=== PATIENT | female | born 1990 | race Caucasian/White ===

== ENCOUNTER 2017-02-02 10:34 | Observation (INO) | payer MEDICAID ==
--- NOTE | 2017-02-01 22:07 | PDGENHP ---
History and Physical History and Physical: Assessment and Plan: 1. Endometriosis of pelvic peritoneum Susie appears to have persistent endometriosis of the posterior cul-de-sac, uterosacral ligaments, ovarian fossas, as well as adhesions secondary to endometriosis of the left ovary to the posterior uterus. The left ovarian cysts s do not appear to be endometriomas. He has not done well with conservative treatment. We again reviewed all conservative and surgical options. At the end of our discussion she wishes to proceed with robotic excision of all superficial and deep lesions of endometriosis. She would like to become again in the future. I will perform her preoperative counseling over the phone. 2. Dysmenorrhea 3. Dyschezia Subjective: Patient ID: Monica Weinstein is a 26 y.o. female who presents to [facility] for endometriosis. FLORI Richards is a 26-year-old para 1 woman using the NuvaRing for contraception. She has a long history of pelvic pain and 3 laparoscopies for endometriosis. The first was in 2009. The last 2 were in [address] Parikh in [place]. I have seen a copy of his operative notes which document fulguration of some endometriosis. She did receive relief for about 6 months with her first surgery. The second surgery this October has not provided any relief. Before her second surgery she was doubled over in pain which was mostly in the left lower quadrant. Dr. Parikh thought she may have 2 ovarian cysts intraoperatively. A Светлана was placed postoperatively. She had trouble pain. This was later removed. She then was switched to the Ortho Evra patch and eventually to the NuvaRing. She has been using the NuvaRing in a continuous fashion. She describes pain on a daily basis. It is focused in the left lower quadrant. There is some slight radiation to her anterior thighs. She describes the pain as a sharp stabbing pain and occasionally dull and cramping. She does have deep dyschezia and occasional dyspareunia. Fortunately she has no chest pain shoulder pain or shortness of breath suggesting diaphragmatic endometriosis. She lives in [place]. She has been with her current partner for 2 years however they do not live together. She does not smoke. 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 "takes 3 tablets for outbreaks etonogestrel-eth estradiol (NUVARING) 0.12-0.015 mg/[address] 1 each vaginally See Admin Instructions. Insert vaginally and leave in place for 3 consecutive weeks, then remove for 1 week. ibuprofen (ADVIL,MOTRIN) 800 mg tablet Take 800 mg by mouth as needed for Pain for Pain. Reported on 07/08/2016 benzocaine (ORABASE-B) 20 % mucous membrane gel Apply topically 2 times daily for Mouth Irritation. (Patient not taking: Reported on 01/07/2017) benzocaine (ORABASE-B) 20 % mucous membrane gel Apply topically 2 times daily for Mouth Irritation. (Patient not taking: Reported on 01/07/2017) fluCONazole (DIFLUCAN) 200 mg tablet Take 1 tablet by mouth daily for Vulvovaginal Candidiasis. (Patient not taking: Reported on 01/07/2017) HYDROCODONE/ACETAMINOPHEN (NORCO PO) sodium phosphates (FLEETS) 19-7 gram/118 mL Enem enema Take 133 mLs as instructed daily as needed for Constipation for constipation. (Patient not taking: Reported on 01/07/2017) No current facility-administered medications for this visit. ALLERGIES: Succinylcholine; Clindamycin; Lexapro [escitalopram oxalate]; Wellbutrin [bupropion hcl]; and Zoloft [sertraline] I have reviewed, verified and agree with the past medical, surgical, , family, social and ROS history as documented by the RN today. Review of Systems Objective: Vital Signs: Visit Vitals BP 104/66 Pulse 73 Temp 36.6 C (97.9 F) (Temporal Artery) Resp 14 Ht 1.651 m (5' 5") Wt 52.8 kg (116 lb 6.4 oz) SpO2 99% BMI 19.37 kg/m2 Physical Exam Gen: This is an alert, well developed woman in no distress. Neuro: She moves all extremities. Psych: She is appropriate, oriented, with normal affect. Neck: No thyroid enlargement, adenopathy, or tenderness. Lungs: Clear to ascultation, no wheezes or rales. Heart: Regular rate and rhythm without obvious murmurs. Abdomen: Soft, non-tender, without guarding, rebound, or masses. Extremities: No edema or cyanosis. Pelvic: Normal external genitalia. Non-gaping introitus, vagina without discharge, adequately estrogenized, no significant prolapse. Cervix without lesions or discharge. Uterus normal sized. Adnexa without enlargement. The uterus is fixed. She is exquisitely tender on the posterior cervix and in the posterior cul-de-sac, especially along the left uterosacral ligament. No significant nodularity is palpable. No rectovaginal nodules are palpable. DATA: Pelvic ultrasound Findings: The uterus is mid position and measures 9.2 x 4.7 x 7.0 cm. The endometrium measures 2 mm. No obvious uterine abnormalities are seen. The uterus slides over the rectum. The right ovary measures 3.1 x 1.5 cm. The left ovary measures 2.8 x 1.8 cm. It contains 2 small complex cystic structures the more posterior measures 1.1 x 1.0 cm. The anterior measures 1.0 x 0.7 cm. The left adnexa appears to be adherent to the posterior uterus. Impression: Left ovary adherent to the posterior uterus. Otherwise relatively unremarkable pelvic ultrasound. TIME/COMMUNICATION: I personally spent a total of 50 minutes. Of that 40 minutes was counseling/ coordination of patient's care. See my note above for details. Young Flores MD Board Certified Female Pelvic Medicine and Reconstructive Surgery Director of Minimally Invasive Gynecologic Surgery, [facility] ([place], [place]) [facility] in Minimally Invasive Gynecologic Surgery Designee
[2017-02-02] MEDS ORDERED: ceFAZolin 2 GM/DEXTROSE 100 ML IV ONE (11:03)
[2017-02-02] MEDS ORDERED: PHENAZOPYRIDINE HCL 100 MG TAB PO ONE (11:03)
[2017-02-02] MEDS ORDERED: LIDOCAINE 1% 2 ML INJ ID PRN (11:04)
[2017-02-02] MEDS ORDERED: LR 1,000 ML IV ONE (11:04)
[2017-02-02] MEDS ORDERED: PHENAZOPYRIDINE HCL 200 MG TAB ONE (11:27)
--- NOTE | 2017-02-02 11:44 | PDANEPAE ---
ANE History of Present Illness 26 yo female with pelvic pain secondary to endometriosis. No pain meds in a while. ANE Past Medical History Past Medical History: No URI/fever x 2 weeks. - Cardiovascular History Hx Hypertension: No Hx Arrhythmias: No Hx Chest Pain: No Hx Coronary Artery / Peripheral Vascular Disease: No Hx CHF / Valvular Disease: No Hx Palpitations: No - Pulmonary History Hx COPD: No Hx Asthma/Reactive Airway Disease: No Hx Recent Upper Respiratory Infection: No Hx Oxygen in Use at Home: No Hx Sleep Apnea: No Sleep Apnea Screening Result - Last Documented: Negative - Neurologic History Hx Cerebrovascular Accident: No Hx Seizures: No Hx Dementia: No Neurologic History Comment: MIGRAINES - Endocrine History Hx Diabetes: No - Renal History Hx Renal Disorders: No - Liver History Hx Hepatic Disorders: No - Neurological & Psychiatric Hx Hx Neurological and Psychiatric Disorders: Yes Neurological / Psychiatric History Comment: ANXIETY & DEPRESSION - Cancer History Hx Cancer: No - Congenital Disorder History Hx Congenital Disorders: No - GI History Hx Gastrointestinal Disorders: No - Other Health History Other Health History: NEG - Chronic Pain History Chronic Pain: Yes (ENDOMETRIOSIS PAIN) - Surgical History Prior Surgeries: LAPAROSCOPY X3. BUNIONECTOMY. TONSILLECTOM. CYST REM WRIST & BACK ANE Review of Systems Review of Systems: - Exercise capacity METS (RN): 4 METS - Systems Constitutional: Reports: no symptoms Cardiac: Reports: no symptoms Respiratory: Reports: shortness of breath (with 2 FOS, pt says she has to pause. No presyncope.) Gastrointestinal: Reports: no symptoms ANE Patient History - Allergies Allergies/Adverse Reactions: succinylcholine Allergy (Severe, Verified 01/27/17 10:38) ACUTE RESPIRATORY FAILURE clindamycin Allergy (Verified 01/27/17 10:44) - Home Medications Home medications: home medication list seen and reviewed Home Medications: Acyclovir 01/27/17 [Last Taken Unknown] Butalbital Compound Tablet 01/27/17 [Last Taken Unknown] Percocet 5-325 mg Tablet 01/27/17 [Last Taken Unknown] - NPO status NPO Status: no food or drink >8 hours NPO Since - Liquids (Date): 02/01/17 NPO Since - Liquids (Time): 23:30 NPO Since - Solids (Date): 02/01/17 NPO Since - Solids (Time): 19:00 - Anes Hx Hx Anesthesia Complications (with details): pseudocholinesterase deficiency noted with succinylcholine dosing in the past - Smoking Hx Smoking Status: Former smoker - Alcohol Use Alcohol Use: Occasionally - Family Anes Hx Family Anes Hx: neg - N/A Family Hx Anesthesia Complications: NEG ANE Labs/Vital Signs - Vital Signs Blood Pressure: 136/82 Heart Rate: 82 Respiratory Rate: 18 O2 Sat (%): 98 Height: 165.1 cm Weight: 52.617 kg ANE Physical Exam - Airway Neck exam: decreased ROM (slightly decreased extension - pt reports muscular stiffness) Mallampati Score: Class 2 Mouth exam: normal dental/mouth exam - Pulmonary Pulmonary: clear to auscultation - Cardiovascular Cardiovascular: regular rate and rhythym, no murmur, rub, or gallop - ASA Status ASA Status: II ANE Anesthesia Plan Anesthesia Plan: general endotracheal anesthesia
--- NOTE | 2017-02-02 12:18 | PDHPUP ---
History & Physical Update H&P update statement: This history and physical update is based on an assessment of the patient which was completed after admission or registration (within 24 hours), but prior to the surgery/procedure. H&P update: H&P reviewed & patient examined, no change in patient's condition since H&P completed
[2017-02-02] MEDS ORDERED: MIDAZOLAM 2 MG/2 ML VIAL IVP ONE (12:30)
[2017-02-02] MEDS ORDERED: PROPOFOL/EMULSION 500 MG/50 ML BOTTLE IV ONE ×2 (12:33→12:42)
[2017-02-02] MEDS ORDERED: BUPIVACAINE/EPI 0.5% 30 ML SDV ONE (12:33)
[2017-02-02] MEDS ORDERED: fentaNYL 100 MCG/2 ML INJ ONE ×5 (12:33→15:18)
[2017-02-02] MEDS ORDERED: MIDAZOLAM 2 MG/2 ML VIAL ONE (12:36)
[2017-02-02] MEDS ORDERED: ROCURONIUM 50 MG/5 ML VIAL ONE ×3 (12:36→13:14)
[2017-02-02] MEDS ORDERED: ONDANSETRON 4 MG/2 ML VIAL ONE (12:36)
[2017-02-02] MEDS ORDERED: DEXAMETHASONE 4 MG/ML VIAL ONE (12:36)
[2017-02-02] MEDS ORDERED: LIDOCAINE 2% 5 ML SDV ONE (13:13)
[2017-02-02] MEDS ORDERED: LR 500 ML IV PRN (14:31)
[2017-02-02] MEDS ORDERED: PROMETHAZINE HCL 25 MG/ML INJ IVP PRN ×2 (14:31→18:35)
[2017-02-02] MEDS ORDERED: ALBUTEROL 3 ML DEYVIAL IH PRN (14:31)
[2017-02-02] MEDS ORDERED: ACETAMINOPHEN 500 MG TAB PO PRN (14:31)
[2017-02-02] MEDS ORDERED: OXYCODONE/APAP 5/325 TAB PO PRN (14:31)
[2017-02-02] MEDS ORDERED: HYDROCODONE/APAP 5/325 TAB PO PRN (14:31)
[2017-02-02] MEDS ORDERED: NALOXONE HCL 0.4 MG/ML INJ IVP PRN (14:31)
[2017-02-02] MEDS ORDERED: GLYCOPYRROLATE 0.2 MG/1 ML VIAL ONE (14:33)
[2017-02-02] MEDS ORDERED: KETOROLAC 30 MG/1 ML SDV ONE (14:33)
[2017-02-02] MEDS ORDERED: NEOSTIGMINE METHYLSULFATE 3 MG/3 ML SYR ONE (14:33)
--- NOTE | 2017-02-02 15:05 | POSTOPPROG ---
Post Op Note Date of Operation: 02/02/17 Surgeon: Young Flores Heavy Duty Diesel Mechanic: Lexi Mantilla Anesthesiologist: Alessandra Eaton Anesthesia: GET(General Endotracheal) Pre-op Diagnosis: Endometriosis Post-op Diagnosis: Same Procedure: Robotic excision of endo, bilat ureterolysis and ovarian pexy, excise recta Findings: Endo Inf/Abcess present in the surg proc area at time of surgery?: No EBL: Minimal Complications: None
[2017-02-02] MEDS: fentaNYL 100 MCG/2 ML INJ IVP PRN ×3 (15:10→17:56)
[2017-02-02] MEDS ORDERED: DIAZEPAM 10 MG/2 ML SYR ONE (15:26)
[2017-02-02] MEDS ORDERED: OXYCODONE/APAP 5/325 TAB ONE (15:27)
[2017-02-02] MEDS: DIAZEPAM 10 MG/2 ML SYR IVP PRN ×2 (15:39→16:32)
[2017-02-02] MEDS ORDERED: HYDROmorphONE/DILAUDID 1 MG/ML INJ ONE (16:29)
[2017-02-02] MEDS: HYDROmorphONE/DILAUDID 1 MG/ML INJ IVP PRN ×5 (16:30→21:35)
[2017-02-02] MEDS ORDERED: DIAZEPAM 10 MG/2 ML SYR IVP PRN (18:35)
[2017-02-02] MEDS ORDERED: ONDANSETRON 4 MG/2 ML VIAL IVP PRN (18:35)
[2017-02-02] MEDS ORDERED: ZOLPIDEM TARTRATE 5 MG TAB PO PRN (18:35)
[2017-02-02] MEDS ORDERED: LR 1,000 ML IV SCH (19:00)
[2017-02-02] MEDS: SIMETHICONE 80 MG TAB CHEW PO SCH ×2 (19:21→22:45)
[2017-02-02 20:38] VITALS: RESP 16
[2017-02-02] MEDS: KETOROLAC 30 MG/1 ML SDV IVP SCH (21:10)
[2017-02-02] MEDS: DOCUSATE SODIUM 100 MG CAP PO SCH (21:14)
[2017-02-02] MEDS: OXYCODONE/APAP 5/325 TAB PO PRN (23:04)
[2017-02-03] MEDS ORDERED: KETOROLAC 30 MG/1 ML SDV IVP SCH
--- NOTE | 2017-02-03 01:43 | GOP ---
[f rep st] OPERATIVE REPORT DATE OF OPERATION: 02/02/2017 SURGEON: Young Flores MD ORDER FULFILLMENT SPECIALIST: Lexi Mantilla CFA ANESTHESIA: General. PREOPERATIVE DIAGNOSIS: 1. Endometriosis. 2. Pelvic pain. POSTOPERATIVE DIAGNOSIS: 1. Endometriosis. 2. Pelvic pain. PROCEDURE PERFORMED: 1. Robotic excision of extensive endometriosis. 2. Bilateral ureterolysis. 3. Bilateral ovarian pexy. 4. Excision of rectal lesion. 5. Partial left oophorectomy. FINDINGS: SPECIMENS: 1. Pelvic peritoneum with endometriosis. 1. Portion of left ovary. 2. ESTIMATED BLOOD LOSS: Scant. DESCRIPTION OF PROCEDURE: The patient was taken to the operating room where she was identified. Gen eral anesthesia was administered and found to be adequate. She was placed in the lithotomy position and prepared and draped in normal sterile fashion. A Hulka tenaculum was placed in the uterus for ma nipulation. A Bowman catheter was then placed. A 1 cm transverse incision was made at the superior margin of the umbilicus. The Veress needle with the CO2 gas flowing was advanced into the peritoneal cavity. The abdomen was then insufflated with c arbon dioxide gas. The 12 mm trocar, followed by the laparoscope were then inserted. The upper abdo men was unremarkable. There was no evidence of endometriosis on either diaphragm, stomach, or liver. Two lateral ports were placed in the right and 1 in the left under direct visualization. She then was placed in Trendelenburg position, and the da Yue robot docked on the left side. The instrument s were then brought into the abdominal cavity under direct visualization. The patient had multiple areas of endometriosis in the anterior cul-de-sac. She had extensive diseas e in the posterior cul-de-sac and bilateral ovarian fossae. The left ovary was adherent to the poste rior aspect of the uterus, as well as the pelvic sidewall overlying the left ureter. The right ovary was adherent to the right ovarian fossa overlying the right ureter. The anterior cul-de-sac peritoneum with endometriosis was completely excised. The lesions on the rig ht ovary were fulgurated. The left ovary had an endometrioma, as well as thickened indurated tissue which appeared to be both active and older endometriosis, possibly from her recent laparoscopic surge ry in [place]. This area was completely excised, requiring removal of a small portion of th e left ovarian stroma to prevent recurrent disease. The superficial lesions were fulgurated. Both o varies had been from the pelvic sidewalls, and the left ovary was from the uterus . Once all these lesions were treated, a bilateral ovarian pexy was performed by attaching the ovary to their ipsilateral round ligaments near the internal inguinal ring with 3-0 Vicryl Rapide suture. Attention was then turned to the posterior cul-de-sac and the distal rectum. This area was completel y excised. The lesion on the distal rectum extended approximately 30% to 50% through the muscularis layer. It was left attached to the peritoneum to aid in removal. A bilateral ureterolysis was requi red, given the extensive endometriosis over the ureters and the ovarian fossa. The peritoneum at the pelvic brims was incised. The ureters were gently dissected free. The ureters were lateralized off the overlying peritoneum and endometriosis from the pelvic brim down to the bladder. Once this was accomplished, the entire ovarian fossa peritoneum from the pelvic brim all the way down to the cervix was completely excised. The pelvis was then copiously irrigated with sterile saline, and hemostasis was present. Two sheets of Interceed were placed in the posterior cul-de-sac and ovarian fossae. The robot was then undocked . The fascia was closed with 0 Vicryl, skin with 4-0 Monocryl and surgical adhesive. COMPLICATIONS: None. DISPOSITION: Patient extubated in OR, stable to PACU. /[id number]/MODL
[2017-02-03] MEDS: KETOROLAC 30 MG/1 ML SDV IVP SCH ×3 (02:53→14:44)
[2017-02-03] MEDS: OXYCODONE/APAP 5/325 TAB PO PRN ×2 (02:53→07:36)
[2017-02-03] MEDS: HYDROmorphONE/DILAUDID 1 MG/ML INJ IVP PRN (04:29)
[2017-02-03 04:49] VITALS: BP 116/82; PULSE 76; TEMP 98.1; O2SAT 99
[2017-02-03] MEDS: DOCUSATE SODIUM 100 MG CAP PO SCH (08:45)
[2017-02-03] MEDS: SIMETHICONE 80 MG TAB CHEW PO SCH ×2 (08:45→16:17)
[2017-02-03] MEDS ORDERED: DIAZEPAM 5 MG TAB PO PRN (09:25)
[2017-02-03] MEDS: HYDROmorphONE/DILAUDID 2 MG TAB PO PRN ×2 (11:22→16:12)
--- NOTE | 2017-02-05 18:01 | GDS ---
[f rep st] DISCHARGE SUMMARY DISCHARGE DIAGNOSES: 1. Endometriosis. 2. Dysmenorrhea. 3. Dyspareunia. 4. Dyschezia. PROCEDURES: 1. Robotic-assisted laparoscopic excision of extensive endometriosis. 2. Bilateral ureterolysis. 3. Bilateral ovarian pexy. 4. Excision of rectal lesion. 5. Partial left oophorectomy with excision of endometrioma. HISTORY: The patient is a 26-year-old female with a known history of endometriosis and significant p ain. She was taken to the operating room on 02/02/2017, where she underwent the above procedures wit hout complications. Her postop course was uneventful. The morning after surgery she was ambulating, voiding, and tolerating a general diet. She was discharged home with Percocet and ibuprofen for paul n. She was to follow up in 2 weeks after discharge for followup. /[id number]/MODL
== END 2017-02-03 21:00 | disposition home or self-care (01) ==
LOC: FSGY 10:34 → F3E 16:20 → FOB 19:05
PROVIDERS: ADMIT Obstetrics & Gynecology; ATTEND Obstetrics & Gynecology
PROC: 0US24ZZ Reposition Bilateral Ovaries, Percutaneous Endoscopic Approach (ICD-10-PCS; principal; 2017-02-02 12:45)
PROC: 0UBF4ZX Excision of Cul-de-sac, Percutaneous Endoscopic Approach, Diagnostic (ICD-10-PCS; principal; 2017-02-02 12:45)
PROC: 0UB14ZX Excision of Left Ovary, Percutaneous Endoscopic Approach, Diagnostic (ICD-10-PCS; principal; 2017-02-02 12:45)
PROC: 0DBP4ZX Excision of Rectum, Percutaneous Endoscopic Approach, Diagnostic (ICD-10-PCS; principal; 2017-02-02 12:45)
PROC: 8E0WXCZ Robotic Assisted Procedure of Trunk Region (ICD-10-PCS; principal; 2017-02-02 12:45)
PROC: 0U524ZZ Destruction of Bilateral Ovaries, Percutaneous Endoscopic Approach (ICD-10-PCS; principal; 2017-02-02 12:45)
DX: N80.3 Endometriosis of pelvic peritoneum (principal); N80.1 Endometriosis of ovary; N80.8 Other endometriosis; R10.2 Pelvic and perineal pain; N94.6 Dysmenorrhea, unspecified; N94.10 Unspecified dyspareunia
CPT/HCPCS: 58662; 58679; C1765; G0378; J0690; J1100; J1170; J1885; J2250; J2405; J2704; J2710; J3010